=== PATIENT | female | born 1985 | race African-American/Black ===

== ENCOUNTER 2019-05-24 06:10 | Inpatient (IN) | payer SELFPAY ==
[~2019-05-24] VITALS: Ht 157.5 cm; Wt 108.4 kg
[2019-05-24] MEDS ORDERED: LACTATED RINGERS 1,000 ML IV SCH (06:30)
[2019-05-24] MEDS ORDERED: PNV1TABL50 MT (07:14)
[2019-05-24] MEDS ORDERED: DEXT 5%/LACTATED RINGERS 1,000 ML IV SCH (07:45)
[2019-05-24] MEDS ORDERED: BUTORPHANOL TARTRATE 2 MG/ML VIAL IM PRN ×2 (08:00→08:15)
[2019-05-24] MEDS ORDERED: PENICILLIN G POTASSIUM 5 MMU in DEXT 5% WATER 100 ML IV SCH (08:00)
[2019-05-24 08:41] LABS: CLARITY URINE CLEAR (CLEAR); COLOR URINE YELLOW (YELLOW); KETONES URINE NEGATIVE (NEGATIVE); LEUKOCYTE ESTERASE URINE NEGATIVE (NEGATIVE); NITRITE URINE NEGATIVE (NEGATIVE); OCCULT BLOOD URINE TRACE (NEGATIVE); PROTEIN URINE NEGATIVE (NEGATIVE); SPECIFIC GRAVITY URINE 1.013 (1.005-1.030); UROBILINOGEN URINE 0.2 E.U./dL (0.2-1.0)
[2019-05-24 08:57] LABS: BASOPHILS % 0.3 % (0.0-2.0); EOSINOPHILS % 0.2 % (0.0-5.0); HEMATOCRIT. 35.1 % (36.0-48.0); HEMOGLOBIN. 11.7 g/dL (12.0-16.0); MEAN CORPUSCULAR HEMOGLOBIN 26.7 pg (28.0-32.0); MEAN CORPUSCULAR VOLUME 79.8 fL (81.0-99.0); MEAN PLATELET VOLUME 9.9 fl (7.4-10.4); MONOCYTES % 8.7 % (2.0-8.0); NEUTROPHILS % 73.8 % (40.0-76.0); PLATELET 184 x1000/uL (130-400); RED CELL DISTRIBUTION WIDTH 13.6 % (11.6-14.6)
[2019-05-24] MEDS ORDERED: DEXT 5%/LR + PITOCIN 20UNITS/L 1,000 ML IV ONE (08:59)
[2019-05-24] MEDS ORDERED: ROPIVACAINE HCL/PF EPIDURAL 200 ML EPI SCH (09:00)
[2019-05-24 09:05] LABS: CHLORIDE 109 mEq/L (98-107)
[2019-05-24 09:07] LABS: *AMPHETAMINES SCREEN URINE NEGATIVE (NEGATIVE); *BARBITURATES SCREEN URINE NEGATIVE (NEGATIVE); *BENZODIAZEPINES SCREEN URINE NEGATIVE (NEGATIVE); *COCAINE SCREEN URINE NEGATIVE (NEGATIVE); METHADONE URINE SCREEN NEGATIVE (NEGATIVE)
[2019-05-24 09:08] LABS: CANNABINOID URINE SCREEN NEGATIVE (NEGATIVE); OPIATES URINE SCREEN NEGATIVE (NEGATIVE); PHENCYCLIDINE URINE SCREEN NEGATIVE (NEGATIVE)
[2019-05-24 09:27] LABS: INR 0.9; PARTIAL THROMBOPLASTIN TIME 25.6 sec (23.4-31.0); PROTHROMBIN TIME 9.4 sec (9.6-11.0)
[2019-05-24 09:43] LABS: HEPATITIS B SURFACE ANTIGEN NEGATIVE
[2019-05-24] MEDS ORDERED: RHO(D) IMMUNE GLOBULIN 300 MCG/SYR IM PRN (10:00)
[2019-05-24] MEDS ORDERED: IBUPROFEN 400MG TABLET PO PRN (10:00)
[2019-05-24] MEDS ORDERED: DEXT 5%/LR + PITOCIN 20UNITS/L 1,000 ML IV SCH (10:00)
[2019-05-24] MEDS ORDERED: IBUPROFEN 800MG TABLET PO PRN (10:00)
[2019-05-24] MEDS ORDERED: IBUPROFEN 600MG TABLET PO PRN (11:45)
[2019-05-24] MEDS ORDERED: PENICILLIN G POTASSIUM 2.5 MMU in DEXTROSE 5% WATER 50 ML IV SCH (12:00)
[2019-05-24 16:00] VITALS: BP 100/63
[2019-05-24 20:30] VITALS: BP 110/66
[2019-05-25 05:15] VITALS: BP 96/52
[2019-05-25 06:33] LABS: BASOPHILS % 0.4 % (0.0-2.0); EOSINOPHILS % 2.2 % (0.0-5.0); HEMATOCRIT. 26.8 % (36.0-48.0); HEMOGLOBIN. 8.9 g/dL (12.0-16.0); LYMPHOCYTES % 19.2 % (20.0-50.0); MEAN CORPUSCULAR VOLUME 80.9 fL (81.0-99.0); MEAN PLATELET VOLUME 9.9 fl (7.4-10.4); MONOCYTES % 7.3 % (2.0-8.0); NEUTROPHILS % 70.9 % (40.0-76.0); PLATELET 174 x1000/uL (130-400); RED BLOOD CELL COUNT 3.31 mill/uL (4.2-5.4); RED CELL DISTRIBUTION WIDTH 13.6 % (11.6-14.6)
[2019-05-25 07:30] VITALS: BP 100/51
== END 2019-05-25 09:05 | disposition home or self-care (01) | DRG 560 ==
LOC: 8 EST LDRP 06:10 → OBSVTOIN 06:10 → 8 EST LDRP 17:34
PROVIDERS: ADMIT Specialist; ATTEND Specialist
PROC: 10E0XZZ Delivery of Products of Conception, External Approach (ICD-10-PCS; principal; 2019-05-24)
DX: O02.1 Missed abortion (principal); D62 Acute posthemorrhagic anemia; Z3A.19 19 weeks gestation of pregnancy; O90.81 Anemia of the puerperium; Z37.1 Single stillbirth
CPT/HCPCS: 36415; 76805; 80305; 81003; 84550; 85384; 86592; 86703; 86762; 86850; 86900; 87340; 88307; 88309; 99281; G0378; J0595; J2540; J2590; J7060; J7121